=== PATIENT | male | born 1945 | race Caucasian/White ===

== ENCOUNTER → 2017-08-31 | Outpatient (CLI) | payer MEDICARE, OTHER ==
[~2017-08-31] MED LIST: ADULT LOW DOSE81 MG PO; AMBEREN PO; AMBIEN 10 MG TA10 MG PO; ASPIR 8181 MG PO; ATENOLOL 25 MG25 M1 PO; ATIVAN0.5 MG OR; ATIVAN1 MG PO; CALCIUM OYSTER500 MG PO; CARDIZEM CD120 MG PO; CARDIZEM CD180 MG PO; CARDIZEM CD360 MG; CARDIZEM OR; CELEBREX; CEPHALEXIN 500500 M1 PO; CO Q-10200 MG PO; COUMADIN 2.5MG2.5 M1 PO; COUMADIN 5 MG TA5 M1 PO; COZAAR100 MG PO; DETROL LA4 MG PO; DILTIAZEM 24HR420 MG PO; DOCUSATE SODIU100 MG PO; FERROUS GLUCON300 MG PO; FISH OIL 1,001000 M1 PO; FISH OIL 1,001000 M2 PO; HUMALOG100 UNIT/1 SC; HUMALOG100 UNIT/1 SUBQ; HYDROCODON-ACE1 EACH PO; IBUPROFEN 800800 M1 PO; IRON325 PO; JANTOVEN5 MG PO; K-DUR 20 MEQ T20 MEQ OR; LANTUS SC; LANTUS100 UNIT/M SUBQ; LASIX 40 MG TAB40 MG OR; LIPITOR20 MG OR; LIPITOR40 MG PO; LISINOPRIL20 MG OR; LISINOPRIL40 MG PO; MAGNESIUM GLUC500 MG PO; MATZIM LA420 MG PO; MULTAQ400 MG; NEURONTIN 300300 M1 PO; NYSTATIN1 EA10 MC; OXYCODONE HCL 55 MG PO; PACERONE 200 M200 M1 PO; PERCOCET 7.5-31 EACH PO; PHENERGAN 25 MG25 M1 PO; PLAVIX 75 MG TA75 MG PO; TOPROL XL100 MG PO; TOVIAZ4 M1; TOVIAZ4 MG OR; TOVIAZ4 MG PO; TOVIAZ8 MG PO; TRAMADOL 50 MG50 MG PO; TRILIPIX135 MG; TRILIPIX135 MG PO; VESICARE 5 MG TA5 MG PO; VITAMIN E1000 UNI3 PO; XANAX 0.25 MG0.25 MG PO
== END ==
LOC: M.WC 08-26 10:00
DX: I87.2 Venous insufficiency (chronic) (peripheral) (principal); E11.622 Type 2 diabetes mellitus with other skin ulcer; L97.811 Non-pressure chronic ulcer of other part of right lower leg limited to breakdown of skin; I10 Essential (primary) hypertension; E78.5 Hyperlipidemia, unspecified; Z86.73 Personal history of transient ischemic attack (TIA), and cerebral infarction without residual deficits; Z89.612 Acquired absence of left leg above knee; Z95.1 Presence of aortocoronary bypass graft

== ENCOUNTER → 2017-09-03 | Outpatient (CLI) | payer MEDICARE, OTHER | LOC: M.WC 01:51 | DX: E11.622 Type 2 diabetes mellitus with other skin ulcer (principal); L97.811 Non-pressure chronic ulcer of other part of right lower leg limited to breakdown of skin; I87.2 Venous insufficiency (chronic) (peripheral); I10 Essential (primary) hypertension; E78.5 Hyperlipidemia, unspecified; Z96.653 Presence of artificial knee joint, bilateral; Z86.73 Personal history of transient ischemic attack (TIA), and cerebral infarction without residual deficits; Z95.1 Presence of aortocoronary bypass graft ==

== ENCOUNTER → 2017-09-07 | Outpatient (CLI) | payer MEDICARE, OTHER | LOC: M.WC 01:44 | DX: E11.622 Type 2 diabetes mellitus with other skin ulcer (principal); L97.811 Non-pressure chronic ulcer of other part of right lower leg limited to breakdown of skin; I87.2 Venous insufficiency (chronic) (peripheral); I10 Essential (primary) hypertension; E78.5 Hyperlipidemia, unspecified; Z96.653 Presence of artificial knee joint, bilateral; Z96.612 Presence of left artificial shoulder joint; Z95.1 Presence of aortocoronary bypass graft; Z79.01 Long term (current) use of anticoagulants; Z79.4 Long term (current) use of insulin; Z86.73 Personal history of transient ischemic attack (TIA), and cerebral infarction without residual deficits; Z89.612 Acquired absence of left leg above knee; Z79.82 Long term (current) use of aspirin ==

== ENCOUNTER → 2017-09-21 | Outpatient (CLI) | payer MEDICARE, OTHER | LOC: M.WC 09-14 05:25 | DX: S81.001A Unspecified open wound, right knee, initial encounter (principal); E11.622 Type 2 diabetes mellitus with other skin ulcer; I87.2 Venous insufficiency (chronic) (peripheral); L97.811 Non-pressure chronic ulcer of other part of right lower leg limited to breakdown of skin; E78.5 Hyperlipidemia, unspecified; I10 Essential (primary) hypertension; Z86.73 Personal history of transient ischemic attack (TIA), and cerebral infarction without residual deficits; Z89.612 Acquired absence of left leg above knee; Z95.1 Presence of aortocoronary bypass graft; X58.XXXA Exposure to other specified factors, initial encounter; Y93.89 Activity, other specified; Y92.89 Other specified places as the place of occurrence of the external cause; Y99.8 Other external cause status ==

== ENCOUNTER → 2017-10-05 | Outpatient (CLI) | payer MEDICARE, OTHER | LOC: M.WC 09-28 03:34 | DX: E11.622 Type 2 diabetes mellitus with other skin ulcer (principal); L97.811 Non-pressure chronic ulcer of other part of right lower leg limited to breakdown of skin; I87.2 Venous insufficiency (chronic) (peripheral); I10 Essential (primary) hypertension; E78.5 Hyperlipidemia, unspecified; Z96.653 Presence of artificial knee joint, bilateral; Z96.612 Presence of left artificial shoulder joint; Z86.73 Personal history of transient ischemic attack (TIA), and cerebral infarction without residual deficits; Z95.1 Presence of aortocoronary bypass graft; Z89.612 Acquired absence of left leg above knee ==

== ENCOUNTER → 2017-10-12 | Outpatient (CLI) | payer MEDICARE, OTHER | LOC: M.WC 02:26 | DX: E11.622 Type 2 diabetes mellitus with other skin ulcer (principal); L97.811 Non-pressure chronic ulcer of other part of right lower leg limited to breakdown of skin; I87.2 Venous insufficiency (chronic) (peripheral); I10 Essential (primary) hypertension; E78.5 Hyperlipidemia, unspecified; Z86.73 Personal history of transient ischemic attack (TIA), and cerebral infarction without residual deficits; Z95.1 Presence of aortocoronary bypass graft; Z96.653 Presence of artificial knee joint, bilateral; Z96.612 Presence of left artificial shoulder joint ==

== ENCOUNTER → 2017-10-19 | Outpatient (CLI) | payer MEDICARE, OTHER | LOC: M.WC 02:54 | DX: E11.622 Type 2 diabetes mellitus with other skin ulcer (principal); I87.2 Venous insufficiency (chronic) (peripheral); L97.811 Non-pressure chronic ulcer of other part of right lower leg limited to breakdown of skin; E78.5 Hyperlipidemia, unspecified; I10 Essential (primary) hypertension; Z86.73 Personal history of transient ischemic attack (TIA), and cerebral infarction without residual deficits; Z89.612 Acquired absence of left leg above knee; Z95.1 Presence of aortocoronary bypass graft ==

== ENCOUNTER → 2017-10-26 | Outpatient (CLI) | payer MEDICARE, OTHER | LOC: M.WC 00:31 | DX: E11.622 Type 2 diabetes mellitus with other skin ulcer (principal); I87.2 Venous insufficiency (chronic) (peripheral); L97.811 Non-pressure chronic ulcer of other part of right lower leg limited to breakdown of skin; E78.5 Hyperlipidemia, unspecified; I10 Essential (primary) hypertension; Z86.73 Personal history of transient ischemic attack (TIA), and cerebral infarction without residual deficits; Z89.612 Acquired absence of left leg above knee; Z95.1 Presence of aortocoronary bypass graft ==

== ENCOUNTER 2017-11-25 12:32 | Inpatient (IN) | payer MEDICARE, OTHER ==
[~2017-11-25] VITALS: Ht 177.8 cm; Wt 110.3 kg
[~2017-11-25 12:32] MED LIST changes: -ASPIR 8181 MG PO; -CARDIZEM CD120 MG PO; -CARDIZEM CD180 MG PO; -COUMADIN 2.5MG2.5 M1 PO; -COUMADIN 5 MG TA5 M1 PO; -DETROL LA4 MG PO; -FISH OIL 1,001000 M2 PO; -HUMALOG100 UNIT/1 SUBQ; -IRON325 PO; -LANTUS100 UNIT/M SUBQ; -TOPROL XL100 MG PO; -TOVIAZ8 MG PO
[2017-11-25] MEDS ORDERED: ASPIR 8181 MG PO (17:04)
[2017-11-25] MEDS ORDERED: TOPROL XL100 MG PO ×2 (17:06→18:27)
[2017-11-25] MEDS ORDERED: DETROL LA4 MG PO (17:06)
[2017-11-25] MEDS ORDERED: CARDIZEM CD120 MG PO (18:18)
[2017-11-25] MEDS ORDERED: CARDIZEM CD180 MG PO (18:19)
[2017-11-25] MEDS ORDERED: IRON325 PO (18:20)
[2017-11-25] MEDS ORDERED: HUMALOG100 UNIT/1 SUBQ (18:22)
[2017-11-25] MEDS ORDERED: LANTUS100 UNIT/M SUBQ (18:24)
[2017-11-25] MEDS ORDERED: TOVIAZ8 MG PO (18:29)
[2017-11-25] MEDS ORDERED: TRILIPIX135 MG PO (18:30)
[2017-11-25] MEDS ORDERED: COUMADIN 5 MG TA5 M1 PO (18:33)
[2017-11-25] MEDS ORDERED: COUMADIN 2.5MG2.5 M1 PO (18:35)
[2017-11-25 18:51] VITALS: BP 162/80
--- NOTE | 2017-11-25 18:55 | NUR ---
PATIENT ADMITTED TO UNIT FROM [facility] AT 1745, ORIENTED TO ROOM AND CALL LIGHT, EMAR UPDATED. PATIENT EATING DINNER AT THIS TIME, NO COMPLAINTS OF PAIN/DISCOMFORT. COMMERCIAL SALES REPRESENTATIVE WILL FINISH ADMISSION/ASSESSMENT
[2017-11-25 20:18] VITALS: BP 131/72
[2017-11-25 20:23] VITALS: BP 126/75
--- NOTE | 2017-11-25 23:54 | NUR ---
ASSUMED CARES AT 1920. PT ALERT AND ORIENTED X 4. PLEASANT. SLIGHT SLURRED SPEECH FROM OLD CVA BUT CAN MAKE NEEDS KNOWN. S/P PACEMAKER PLACEMENT. DRESSING TO RIGHT CHEST IS INTACT. 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 HAS ISAEL WRAP TO RIGHT ANKLE DUE TO PAIN. REFUSED ANY PAIN MEDS. TAKES PILLS WHOLE WITHOUT ISSUES. ACCUCHECK AT HS WAS 141. HAS LANTUS 30 UNITS ORDERED BUT PT STATES THAT TAKES 10 UNITS AT HOME. THIS RN REVIEWED RECORDS AND DID NOT FIND THAT LANTUS WAS GIVEN AT PREVIOUS HOSPITAL. PT REQUESTED ONLY 10 UNITS AND SO THIS WAS GIVEN. TOOK HS SNACK. PT ORIENTED TO UNIT AND QUESTIONS ANSWERED. REVIEWED ALL MEDS. TO BRING TOVIAZ AND TRILIPIX FROM HOME. CALL LIGHT IN REACH. WILL CONTINUE TO MONITOR.
[2017-11-26 04:30] LABS: HEMATOCRIT 42.7 % (42.0-52.0); HEMOGLOBIN 14.3 gm/dL (14.0-18.0); MCH 29.1 pg (26.0-34.0); MCHC 33.4 g/dL (28.0-37.0); MCV 87.1 fL (80.0-100.0); MPV 8.8 fl. (7.2-11.1); RBC 4.91 mil/uL (4.50-6.00); RDW-CV 16.1 % (10.5-14.5)
[2017-11-26 04:38] LABS: INR 1.3; PROTIME 12.6 Seconds (9.20-11.50)
[2017-11-26 04:45] LABS: CALCIUM 9.8 mg/dL (8.5-10.1); CREATININE 1.3 mg/dL (0.6-1.3); POTASSIUM 4.2 mmol/L (3.5-5.1)
--- NOTE | 2017-11-26 05:20 | NUR ---
PT IS A MIN ASSIST WITH GAIT BELT AND WALKER. USED URINAL AND STAFF EMPTIED. SLEPT OFF AND ON. USED CALL LIGHT APPROPRIATELY.
[2017-11-26 08:00] VITALS: BP 122/77
--- NOTE | 2017-11-26 11:29 | NUR ---
Nutrition: consult received. Admitted to Rehab s/p pacemaker placement. H/o old BKA and prosthetis, DM. Wt: 234#. BG 102, no albumin recorded. Heart healthy diet with a CHO count is ordered. Pt just admitted last night. Not a lot of info yet. Appears at low nutrition risk at this time. Will follow weekly.
--- NOTE | 2017-11-26 16:37 | NUR ---
ASSUMMED CARE OF PT AT 0730, PT ALERT AND ORIENTED, PT TRANSFERS WITH MIN ASSIST GB WALKER, NEEDS CUEING HE DOES MOVES THAT ARE NOT SAFE AT TIMES, DRESSING TO CHEST C/D/I. PT TAKING FOOD AND FLUIDS WELL, MOVES WELL IN BED, TO DININGROOM FOR LUNCH, PARTICIPATED IN ALL THERAPIES, PRECAUTIONS MAINTAINED, PT STATES HIS PAIN IS AN "8" BUT REFUSES TO TAKE ANY MEDICATION, STATES HE ALWAYS HAS PAIN AND IS USED TO IT. NOTED PT HAS NO PAIN MEDS ORDERED IF NEEDED, WILL OBTAIN ORDER FROM PHYSICIAN, PT STATES HE IS JUST ON SLIDING SCALE INSULIN AT HOME, ORDER OBTAINED TO CHANGE TO SLIDING SCALE, HOURLY ROUNDING COMPLETED, ASSESSMENT COMPLETE, WILL CONTINUE TO MONITOR.
--- NOTE | 2017-11-26 16:51 | NUR ---
SW met with pt to complete initial assessment, introduce self, and SW role. Pt lives in a ranch style home with his and a son who is autistic and goes to [facility] (pt son takes a transport service there and back home). Pt home has a basement but he does not go downstairs. Pt has another son who lives in [place], [place] and a dtr who lives in [place] and is getting ready to have her third child. Pt can be available to assist pt all of the time is a good support system. Pt is DPOA and the second son is alternate agent. Pt prior level of functioning was independent. Pt has a cane, walker, wheelchair, ramp, bsc/toilet riser, walk in shower with chair, grab bars, and a lift chair. Past home health PT, pt did not state name of agency, pt felt that HH was not effective and would rather OP if possible. Pt PCP Dr. Caraballo and he last saw her a couple of months ago. SW reviewed consent/pt rights/confidentiality form and discussed team conference on Wednesdays. SW to continue to follow to assist with safe dc planning.
[2017-11-26 20:22] VITALS: BP 141/85
--- NOTE | 2017-11-27 01:57 | NUR ---
ASSUMED CARE 2 1952-11/26-WEDNESDAY.AWAKE IN BED W/ HOB UP.WANTS SIDERAILS X2 UP. & SON VISITING @ THIS TIME.WEARING LEFT LE PROSTHESES.URINAL W/IN REACH.BED ALARM PUT ON @ 1954.WANTS ONLY 10 UNITS LANTUS INSULIN INSTEAD OF 30 UNITS ORDERED.CLAIMS TAKES ONLY 10 UNITS LANTUS INSULIN @ HOME @ . WILL WRITE NOTE TO HIMS TURNS SELF @ NIGHT.ON HOURLY ROUNDS.HEAD GREENSKEEPER DOING ODD HOUR ROUNDS.
[2017-11-27 04:32] LABS: INR 1.8; PROTIME 17.1 Seconds (9.20-11.50)
--- NOTE | 2017-11-27 05:18 | NUR ---
SLEPT LATE & FOUND SLEEPING @ 0200.VOIDS PER URINAL X1 & SITS EDGE OF BED TO VOID.TOOK ALL TURKEY SANDWICH,PEACHES,POTATO CHIPS,MADDIE CRACKERS & 2 APPLE JUICE HS SNACKS.
[2017-11-27 07:38] VITALS: BP 120/71
--- NOTE | 2017-11-27 18:23 | NUR ---
ASSUMED CARE AT 0730 PATIENT ALERT/ORIENTED, PAIN TO RIGHT SHOULDER UPPER CHEST WHERE PACEMAKER WAS PLACED. PATIENT STATES HE DOES NOT KNOW WHY TRAMADOL WAS LISTED AN ALERGY, TRAMADOL REMOVED FROM HIS ALERGY LIST AND ONE DOSE GIVEN AT 1500 WITH NO REACTIONS NOTED, AND RELIEF OBTAINED. PARTICIPATED IN ALL THERAPIES TO DINING ROOM FOR MEALS. BED/CHAIR ALARMS IN PLACE, CALL LIGHT IN REACH.
[2017-11-27 20:20] VITALS: BP 127/70
--- NOTE | 2017-11-28 00:45 | NUR ---
ASSUMED CARE @ 1949-11/27-SAT.SITS IN RECLINER WATCHING TV.SON VISITING. WEARING LEFT LE PROSTHESES.FOUND IN BED @ 2049.TRANSFERED SELF TO BED. INSTRUCTED TO CALLL FOR SBA ONLY DURING TRANSFERS.WANTS ONLY SIDERAILS X2 UP. BED ALARM PUT ON @ 2049.URINAL W/IN REACH.SEE PAIN MANAGEMENT @ 2116.ON HOURLY ROUNDS.SHERIFF DEPUTY DOING ODD HOUR ROUNDS.TURNS SELF @ NIGHT.
[2017-11-28 04:07] LABS: INR 2.1; PROTIME 20.4 Seconds (9.20-11.50)
--- NOTE | 2017-11-28 05:34 | NUR ---
SLEEPING SINCE 0.USED URINAL X3.NURSE EMPTIES URINAL @ NIGHT.TOOK ALL RED JELLO & ORANGE SHERBET HS SNACKS.
[2017-11-28 07:28] VITALS: BP 165/86
--- NOTE | 2017-11-28 18:35 | NUR ---
ASSUMED CARE AT 0730 PATIENT ALERT/ORIENTED, PAIN MEDS GIVEN X1 THIS AM WITH GOOD RELIEF. PATIENT UP WITH STANDBY ASSIST WITH TRANSFERS TO W/C. BED/CHAIR ALARMS IN PLACE, CALL LIGHT IN REACH. TO DINING ROOM FOR MEALS, FAMILY VISITING THIS SHIFT.
[2017-11-28 20:28] VITALS: BP 127/78
--- NOTE | 2017-11-29 00:31 | NUR ---
ASSUMED CARE @ 1919-.AWAKE IN BED WATCHING TV.LEFT LE PROSTHESIS IN PLACE.WANTS ONLY SIDERAILS X2 UP,ALL LIGHTS OFF & DOOR HALF CLOSED @ NIGHT. URINAL W/IN REACH.SITS EDGE OF BED TO USE URINAL.SEE PAIN MANAGEMENT @ 2040. ON HOURLY ROUNDS.DEAN OF STUDENTS DOING ODD HOUR ROUNDS.SLEEPING @ 2200 & 0035-11/29-WEDNESDAY. TURNS SELF @ NIGHT.
--- NOTE | 2017-11-29 05:22 | NUR ---
SLEEPING SINCE 2200,@ 0035 & @ 0400.AWAKE @ INTERVALS DURING NIGHT.USED URINAL X 5.TOOK ORANGE SHERBETS X2 HS SNACKS.URINE ACCIDENT X1.
[2017-11-29 08:00] VITALS: BP 128/77
--- NOTE | 2017-11-29 14:29 | NUR ---
Pt nurse discussed with SW that pt was at the hospital earlier asking about pt receiving a scooter and that pt will be back to hospital tomorrow to discuss with SW. SW to follow with team to determine if a scooter is recommended and if pt would qualify...scooters are not covered by insurance, motorized/electric wheelchairs can be covered by insurance, but again, pt would have to meet qualifcations and paperwork completed, possibly takes months to finalize receival of electric wheelchair. Pt nurse aware and pt nurse discussed with pt that SW and pt and pt will discuss in further detail tomorrow. SW to continue to follow to assist with safe dc planning and to discuss with pt if there are any questions or comments for SW to present to team on Wednesday during team conference.
--- NOTE | 2017-11-29 16:16 | NUR ---
ASSUMMED CARE OF PT AT 729, PT ALERT AND ORIENTED, TRANSFERS WITH SBA, GB WALKER, TAKING FOOD AND FLUIDS WELL, PROSTHETIC LEG ON LEFT, DRESSING C/D/I TO RIGHT CHEST, VOIDS PER URINAL, PHYSICIANS OFFICE CALLED AND CONFIRMED THAT PT DID NOT NEED TO BE SEEN AT HIS APPT WEDNESDAY, THAT NURSING SHOULD REMOVE DRESSING WEDNESDAY AND CAN STAY OPEN TO AIR AND COVERED WHEN IN SHOWER. PT TAKING FOOD AND FLUIDS WELL, PARTICIPATED IN ALL THERAPIES, HOURLY ROUNDING COMPLETE, ASSESSMENT COMPLETE, REPOSITIONED EVERY 2 HOURS, WAFFLE CUSHION IN PLACE, WILL CONTINUE TO MONITOR.
[2017-11-29 19:59] VITALS: BP 140/68
--- NOTE | 2017-11-30 05:03 | NUR ---
ASSUMED CARES AT 1920. PT ALERT AND ORIENTED. PLEASANT. SPEECH SLURRED FROM OLD CVA BUT CAN MAKE NEEDS KNOWN. S/P PACEMAKER PLACEMENT. WEARS PROSTHESIS TO LEFT BKA. C/O PAIN TO RIGHT SHOULDER AND RIGHT UPPER CHEST. TRAMADOL GIVEN. TAKES PILLS WITHOUT ISSUES. HE IS A MIN ASSIST WITH GAIT BELT AND WALKER. USED URINAL AND STAFF EMPTIES. SLEPT OFF AND ON. USED CALL LIGHT APPROPRIATELY.
[2017-11-30 08:00] VITALS: BP 111/69
--- NOTE | 2017-11-30 15:28 | NUR ---
ASSUMMED CARE OF PT AT 0730, PT ALERT AND ORIENTED, PT TRANSFERS WITH SBA, GB WITH A STAND PIVOT, HAS PROSTHETIC LEG, PT DENIES NEED FOR PAIN MEDICATION AT THIS TIME, PT COMPLAINED OF NAUSEA WITH VOMITING THIS AM WHEN IN SHOWER, PHYSICIAN CALLED AND ORDER OBTAINED FOR ZOFRAN, GIVEN WITH GOOD RELIEF,PT HAD LARGE BM ON TOILET, VOIDS PER URINAL, PT PARTICIPATED IN ALL THERAPIES, HOURLY ROUNDING COMPLETED, ASSESSMENT COMPLETE, WILL CONTINUE TO MONITOR.
--- NOTE | 2017-11-30 17:00 | NUR ---
SW met with pt but pt had just left prior to SW being able to meet with pt. Pt said that he and his actually don't have any paperwork yet but still want to look into process of receiving a motorized wheelchair. SW explained again to pt that team can assess for need and begin paperwork if pt is eligible and meets criteria for the electric wheelchair. Pt understanding and appreciative of possibly trying to look into the process. SW suggested PCP as well at follow up after the hospital if pt not able to receive one during rehab stay and pt said that he just hadn't been able to discuss with his PCP. SW to continue to follow.
[2017-11-30 21:06] VITALS: BP 119/65
[2017-12-01 04:21] LABS: HEMATOCRIT 42.2 % (42.0-52.0); HEMOGLOBIN 14.2 gm/dL (14.0-18.0); MCHC 33.5 g/dL (28.0-37.0); MCV 86.6 fL (80.0-100.0); MPV 8.7 fl. (7.2-11.1); RBC 4.88 mil/uL (4.50-6.00); RDW-CV 16.4 % (10.5-14.5); WBC 6.8 thou/uL (4.0-11.0)
[2017-12-01 04:51] LABS: ANION GAP 8 mmol/L (7-16); BUN 17 mg/dL (7-18); CALCIUM 9.2 mg/dL (8.5-10.1); CHLORIDE 104 mmol/L (98-107); CHOLESTEROL 122 mg/dL (<200); CO2 28 mmol/L (21-32); CREATININE 1.3 mg/dL (0.6-1.3); GLUCOSE 85 mg/dL (70-99); HDL CHOLESTEROL 17 mg/dL (>40); INR 2.3; LDL CHOLESTEROL 56 mg/dL (<100); POTASSIUM 4.2 mmol/L (3.5-5.1); PROTIME 22.1 Seconds (9.20-11.50); SODIUM 140 mmol/L (136-145); TC:HDL 7.2 Ratio (Not establshd); TRIGLYCERIDE 245 mg/dL (<150); VLDL 49 mg/dL (<40)
[2017-12-01 04:53] LABS: SERUM ASSESSMENT Clear
--- NOTE | 2017-12-01 05:00 | NUR ---
ASSUMED CARES AT 1920. PT ALERT AND ORIENTED. PLEASANT. S/P PACEMAKER PLACEMENT. RIGHT CHEST INCISION IS HEALING AND DRIVE IN TELLER. DENIES ANY FURTHER NAUSEA/VOMITING. TRAMADOL GIVEN FOR RIGHT SHOULDER PAIN. TAKES PILLS WHOLE WITHOUT ISSUES. HE IS A MIN ASSIST WITH GAIT BELT AND WALKER. LEFT LEG PROSTHESIS WITH OLD BKA. USES URINAL AND STAFF EMPTIES. HS SNACK GIVEN. SLEPT WELL MOST OF THE NIGHT. ALL NEEDS MET. CALL LIGHT IN REACH.
[2017-12-01 08:11] VITALS: BP 111/55
[2017-12-01 08:15] VITALS: BP 111/55
--- NOTE | 2017-12-01 16:07 | NUR ---
TEAM [employer] MEETING HELD TODAY. CM SPOKE TO THE PATIENT TO INFORM OF THE MEETING AND PLAN TO RETEAM WITH POSSIBLE D/C HOME NEXT WEEK. PATIENT IN AGREEMENT. CM ATTEMPTED TO CONTACT PATIENT'S CRISTAL AND LEFT A VOICEMAIL TO RETURN CALL WITH ANY QUESTIONS OR CONCERNS. PATIENT PROGRESSING TOWARDS GOALS, BUT BARRIERS ARE BACK PAIN, NUMBNESS, ACTIVITY TOLERANCE, AND ENDURANCE. CM WILL REMAIN AVAILABLE TO ASSIST AND FOLLOW NEEDED.
--- NOTE | 2017-12-01 18:58 | NUR ---
ASSUMED CARE AT 0730 PATIENT ALERT/ORIENTED, PAIN MED GIVEN X 1 WITH GOOD RELIEF, BED/CHAIR ALARMS IN PLACE, REFUSED TO EAT LUNCH AND DID NOT WANT TO GO TO DINING ROOM FOR DINNER. CALLED SUNITHA KNOTTER TO EDUCATE PATIENT ON HIS DIET/CARBS ALLOWED ETC. CALL LIGHT IN REACH, PARTICIPATED IN ALL THERAPIES TODAY.
[2017-12-01 19:59] VITALS: BP 135/79
--- NOTE | 2017-12-02 01:31 | NUR ---
ASSUMED CARE @ 1924-.SITS IN RECLINER W/ LEFT LE PROSTHESES ON VISITING W/ SON.CHAIR ALARM PUT ON @ 1924.WANTS ONLY SIDERAILS X2 UP.URINAL W/IN REACH.BRP PER W/C @ 2109.PATIENT FOUND IN BED @ 2129.TRANSFERED SELF FROM TOILET TO W/C TO BED.INSTRUCTED TO CALL FOR ASSIST DURING TRANSFERS.SITS EDGE OF BED TO USE URINAL.ON HOURLY ROUNDS.MANAGER ETL DOING ODD HOUR ROUNDS.
--- NOTE | 2017-12-02 05:21 | NUR ---
SLEEPING SINCE 2199.BRP PER W/C X1.USED URINAL X2.TOOK ALL TURKEY SANDWICH, PEACHES,MADDIE CRACKERS,POTATO CHIP & APPLE JUCE X2 HS SNACKS.SEE POSITION CHANGE CHARTING.
[2017-12-02 07:43] VITALS: BP 123/63
[2017-12-02 19:58] VITALS: BP 135/89
--- NOTE | 2017-12-03 00:41 | NUR ---
ASSUMED CARE @ 1919-.AWAKE IN BED W/ HOB UP.URINAL W/IN REACH.WANTS SIDERAILS X2 UP.NOT WEARING LEFT LE PROSTHESES @ THIS TIME.MEPILEX DRSG LEFT FOREARM IN PLACE.SLEEPING ALREADY @ 2039 BUT AWAKENED FOR HS MEDS.ON HOURLY ROUNDS.MAMMALOGIST DOING ODD HOUR ROUNDS.SEE POSITION CHANGE CHARTING.
--- NOTE | 2017-12-03 05:29 | NUR ---
SLEEPING SINCE 2039.USED URINAL X3.SITS EDGE OF BED TO USE URINAL.TOOK ONE ORANGE SHERBET HS SNACK.
[2017-12-03 08:07] VITALS: BP 108/75
--- NOTE | 2017-12-03 10:22 | NUR ---
SW met with pt and provided list of resources/referrals for power wheelchairs. Pt said that his son bought pt a scooter. Pt was grateful for the resource list though of [employer], [employer], and [employer] for future possible power wheelchair needs. SW to continue to follow to assist with safe dc planning.
--- NOTE | 2017-12-03 15:35 | NUR ---
PT GONE AT 1430 FOR AN XRAY IN RADIOLOGY.
[2017-12-03 20:00] VITALS: BP 139/74
--- NOTE | 2017-12-03 20:50 | NUR ---
SITTING UP IN CHAIR VISITING WITH YOUNG MALE VISITOR AND WATCHING TV. C/O PAIN IN PACEMAKER AREA RATED "8". PRN TRAMADOL GIVEN. PACEMAKER SITE OPEN TO AIR. TWO SAME RED SPOTS OBSERVED. TOOK MEDS WHOLE WITH WATER.
--- NOTE | 2017-12-04 05:17 | NUR ---
AT 11:15 PT STATED STILL NO RELIEF FROM SORENESS IN PACEMAKER AREA OBTAINED. PATIENT STATES HE TAKES IBUPROFEN AT HOME FOR PAIN. IBUPROFEN IS CONTRAINDICATED BECAUSE OF ITS INTERACTION WITH COUMADIN. WHEN WENT TO INFORM PATIENT HE WAS SLEEPING AND HAS RESTED SINCE THEN. HOURLY ROUNDING IN PROGRESS.
[2017-12-04 07:30] VITALS: BP 121/78
--- NOTE | 2017-12-04 18:47 | NUR ---
AM ASSESSMENT AND VITAL SIGNS COMPLETED DOCUMENTED. PT TRANSFERS WITH A GAIT BELT, WALKER AND LEFT LEG PROSTHESIS. ALL THERAPY SESSIONS COMPLETED. FALL PRECAUTIONS AND HOURLY ROUNDING IN PLACE.
[2017-12-04 20:00] VITALS: BP 154/104
--- NOTE | 2017-12-04 21:20 | NUR ---
SITTING UP ON SIDE OF BED DOING ORAL CARE. VOIDS DARK/YELLOW URINE PER URINAL. SITS ON SIDE OF BED TO VOID. HAD VISITORS EARLIER. TOOK MEDS WHOLE WITH WATER. PAIN MED GIVEN FOR C/O PAIN IN PACEMAKER AREA.
--- NOTE | 2017-12-05 05:38 | NUR ---
RESTED QUIETLY. NO FURTHER C/O PAIN. HOURLY ROUNDING IN PROGRESS.
[2017-12-05 07:52] VITALS: BP 120/72
--- NOTE | 2017-12-05 19:22 | NUR ---
AM ASSESSMENT AND VITAL SIGNS COMPLETED DOCUMENTED. PT HAS BEEN UP IN A WHEELCHAIR MOST OF THE DAY, SELF PROPELS ABOUT HIS ROOM AND TO THE DINING ROOM FOR MEALS. NO ACUTE DISTRESS, HOURLY ROUNDING AND FALL PRECAUTIONS IN PLACE.
[2017-12-05 20:00] VITALS: BP 133/72
--- NOTE | 2017-12-06 01:11 | NUR ---
ASSUMED CARE @ 1924-12/05-SUN.AWAKE IN BED WATCHING TV.URINAL W/.IN REACH. BED ALARM PUT ON @ 1924.LEFT LEG PROSTHESES OFF @ THIS TIME.MEPILEX DRSG CAME OFF LEFT FOREARM.ABRASION CLEANSED W/ NS & NEW MEPILEX APPLIED @ 2114.ON HOURLY ROUNDS.SALT CUTTER DOING ODD HOUR ROUNDS.SEE POSITION CHANGE CHARTING.
--- NOTE | 2017-12-06 05:40 | NUR ---
SLEEPING SINCE -12/06-WEDNESDAY.SLEPT LATE.USED URINAL X6.URINE ACCIDENT X1. TOOK ALL ORANGE SHERBETS X2 HS SNACKS.
[2017-12-06 08:07] VITALS: BP 134/72
--- NOTE | 2017-12-06 15:30 | NUR ---
SW followed up with pt on how pt feels he is making progress in therapies. Pt says he feels "pretty good". Pt did not have any needs or questions at this time. SW to follow to discuss with pt if there are any comments or concerns and to continue to follow to assist with safe dc planning.
--- NOTE | 2017-12-06 16:12 | NUR ---
PT UP TO W/C AND IS I MOBILE ON UNIT. PT TRANSFERRS WITH MIN ASSIST OF 1 AND IS REMINDED TO CALL FOR ASSIST WITH ALL TRANSFERRS. PT DENIES PAIN. PT WEARS PROSTHESIS TO LT LEG. PT EATS MEALS IN DINNINGROOM AND FEEDS SELF.PACEMAKER INCISION WELL HEALED AND CARDIOVASCULAR SONOGRAPHER.PT VOIDS USEING URINAL AND CALLS FOR ASSIST TO TRANSFERR TO TOILET FOR BM. PT IS ALERT AND ORIENTATED AND SLIGHTLY IGIUGIG. PT PROGRESSES TOWARDS GOALS AND HOURLY ROUNDING CONTINUES.
[2017-12-06 20:39] VITALS: BP 135/78
--- NOTE | 2017-12-07 01:39 | NUR ---
ASSUMED CARE @ -WEDNESDAY.AWAKE IN BED W/ HOB UP. & SON VISITING @ THIS TIME.URINAL W/IN REACH.LEFT LE PROSTHESES OFF @ THIS TIME.SITS EDGE OF BED TO USE URINAL.ON HOURLY ROUNDS.METAL FABRICATING SUPERVISOR DOING ODD HOUR ROUNDS.SEE POSITION CHANGE CHARTING.
--- NOTE | 2017-12-07 05:10 | NUR ---
SLEEPING SINCE 2224.AWAKE MOST OF TIME LATER.USED URINAL X6 DURING NIGHT. TOOK ORANGE SHERBETS X2 HS SNACKS.
[2017-12-07 07:00] VITALS: BP 123/71
[2017-12-07 08:26] LABS: INR 2.2; PROTIME 21.6 Seconds (9.20-11.50)
--- NOTE | 2017-12-07 09:25 | NUR ---
SW attempted to follow up with pt Anabel at [phone] and Anabel did not answer so SW left a detailed message requesting call back with any questions or comments and in reference to team conference on Wednesday with pt possible to dc this week. Pt did not express any concerns or questions at this time. SW to continue to follow to assist with safe dc planning.
--- NOTE | 2017-12-07 17:32 | NUR ---
PT UP IN ROOM AND HALLS WITH STEADY GAIT AND SB ASSIST. PT DENIES PAIN. PT GOOD APPETITE AND TOLERATING PO WELL. PT PARTICIPATES IN ALL THERAPIES
--- NOTE | 2017-12-07 19:50 | NUR ---
SITTING UP ON SIDE OF BED. IN GOOD SPIRITS. DENIES DISCOMFORT. CALL LIGHT AND URINAL WITHIN REACH. TAKES MEDS WHOLE WITH WATER. SNACK PROVIDED.
[2017-12-07 20:10] VITALS: BP 128/73
--- NOTE | 2017-12-08 05:15 | NUR ---
RESTED ON/OFF. USED URINAL X 3. SPILLED URINE ONTO THE FLOOR X ONE. HOURLY ROUNDING IN PROGRESS.
[2017-12-08 08:06] VITALS: BP 129/74
--- NOTE | 2017-12-08 12:39 | NUR ---
AM ASSESSMENT AND VITAL SIGNS COMPLETED DOCUMENTED. PT HAS BEEN UP IN THE WHEELCHAIR, COMPLETED AM THERAPY SESSIONS AND THEN TOOK A NAP BEFORE AFTERNOON SESSIONS. BED ALARM AND CHAIR ALARM IN PLACE, HOWEVER, PT DOES TRANSFER HIMSELF AT TIMES WITHOUT SUPERVISION. HOURLY ROUNDING AND FALL PRECAUTIONS IN PLACE, PT ENCOURAGED TO CALL FOR STAFF ASSISTANCE.
--- NOTE | 2017-12-08 14:26 | H ---
[address] [address] HISTORY AND PHYSICAL Name: EVERARDO PRECIADO Room: [facility] IN .R.#: [id number] Admission: 11/25/17 Attend Phys: Cindi Fairchild DO Discharge: Date of : 49 Report #: [id number] THIS REPORT FOR: //name// CC: Cindi Caraballo DATE OF SERVICE: 11/25/2017 HISTORY OF PRESENT ILLNESS: This is a 72-year-old male admitted to inpatient rehabilitation to facilitate safe discharge home, status post pacemaker placement due to sick sinus syndrome on 11/22/2017, he was originally hospitalized on 11/17/2017. He has a history of paroxysmal atrial fibrillation, embolic CVA in 2008, CABG times 4 in 2010, and a below-knee amputation in 1965, presenting on 11/17/2017, with symptoms of lightheadedness, orthopnea and decreased heart rate into the 30s. EKG did reveal ventricular rhythm. He was worked up, slated for a pacemaker and is currently continuing physical and occupational therapy due to alterations in activities of daily living. He was previously modified independent with activities of daily living and is currently minimum assistance of 1-2 depending on therapy, activity, and time of day. He does have some minimal issues with problem solving and memory. No significant changes since the preadmission screening. Estimated length of stay is 7-10 days with discharge disposition to the home setting where he does have a who lives in the home can provide supervision. PAST MEDICAL HISTORY: Atrial fibrillation, BPH, CAD, CABG times 4, diabetes type 2 with a random glucose of 74, GERD, hypertension, osteoarthritis of knees and hips, cerebrovascular accident in 2008, BKA in 1965, urinary retention, visual impairment, tibial plateau fracture, left total hip arthroplasty in 2015, right knee replacement in March 2013, right shoulder surgery in 2011 and 2012. ALLERGIES: ACETAMINOPHEN, TRAMADOL, and ZOLPIDEM. SOCIAL HISTORY: No tobacco, alcohol, or illicit drug use. FAMILY HISTORY: Heart disease. REVIEW OF SYSTEMS: Q16-pnosp review of systems is done and is negative except as mentioned in the HPI, specifically no fever, chest pain, shortness of breath, abdominal pain, or distention. Skin is warm and dry. PHYSICAL EXAMINATION: GENERAL: Alert, oriented, in no apparent distress. VITAL SIGNS: Reviewed and are stable. HEENT: Head atraumatic, normocephalic. Pupils are equal, round, and reactive. ABDOMEN: Soft, nontender, and nondistended. NEUROLOGIC: Cranial nerves 2-12 are grossly intact [place] [address] HISTORY AND PHYSICAL Name: EVERARDO PRECIADO Room: [facility] IN M.R.#: [id number] Admission: 11/25/17 Attend Phys: Cindi Fairchild DO Discharge: Date of : 49 Report #: [id number] deficits, 5/5 strength in bilateral upper and lower extremities. Neurologically intact. SKIN: Warm and dry. EXTREMITIES: Below-knee amputation is apparent. ASSESSMENT: 1. Status post sick sinus syndrome with pacemaker placement and alterations in activities of daily living from previously modified independent level of care. 2. Currently minimum assistance of 1-2. 3. Multiple medical comorbidities including atrial fibrillation, coronary artery disease, history of cardiac disease, diabetes, hypertension, and history of cerebrovascular accident as well as a below-knee amputation. PLAN: 1. Admission to inpatient rehabilitation to facilitate safe discharge home. 2. PT, OT, case management, nursing and HIMS to make evaluations and recommendations. 3. Heart healthy, carb-controlled diet. 4. CBC, BMP, INR and protime in the a.m. 5. Up with assistance and fall precautions. 6. Medications were reviewed and reconciled by myself and are available in the MAR. 7. Plan of care is pending. We will team him weekly and make changes to plan of care as needed. <ELECTRONICALLY SIGNED> By: Cindi Fairchild DO 12/08/17 1426 [id number] Fairchild DO /nt
--- NOTE | 2017-12-08 14:26 | PLAN ---
[address] [address] REHAB UNIT PLAN OF CARE Name: EVERARDO PRECIADO Room: [address] IN .R.#: [id number] Admission: 11/25/17 Attend Phys: Cindi Fairchild DO Discharge: Date of : 47 Report #: [id number] THIS REPORT FOR: //name// CC: Cindi Caraballo OVERALL PLAN OF CARE This is a 72-year-old male admitted to inpatient rehabilitation to facilitate safe discharge home, status post sick sinus syndrome with pacemaker placement. Initial hospitalization on 11/17/2017 with surgical date on 11/22/2017. He was previously modified independent with activities of daily living and is currently minimum assistance of 1-2 depending on therapy, activity and time of day with some assistance needed in problem solving and memory as well. Medical prognosis is good. Rehabilitation prognosis is good. Estimated length of stay is 7-10 days with discharge disposition to the home setting where he lives in a home. He has a who can provide supervision. Physical Therapy will see the patient 60-90 minutes per day, 5 days per week, working on upper and lower body strength, balance, coordination, navigation. Occupational Therapy will work with the patient 60-90 minutes per day, 5 days per week, working on upper and lower body strength, balance, coordination, navigation, bathing, dressing, and toileting. Speech and language pathology will work with the patient 30-90 minutes per day, 5 days per week, working on memory, cognition, problem solving, expression 5 days per week. This is an overall plan of care, it may change from time to time, we will team weekly and make changes to plan of care as needed. <ELECTRONICALLY SIGNED> By: Cindi Fairchild DO 12/08/17 1426 [id number] Fairchild DO /nt
--- NOTE | 2017-12-08 14:57 | NUR ---
Following for d/c planning needs. Reviewed chart and updated pt and spouse on Team Meeting discussion. Plan is for pt to d/c home on Wednesday with outpatient PT. Will remain available to assist as needed.
[2017-12-08 19:30] VITALS: BP 112/51
--- NOTE | 2017-12-09 05:05 | NUR ---
ASSUMED PT CARE AT 1930. PT ALERT AND ORIENTED X4, POLITE AND COOPERATIVE WITH CARES. PT SITTING UP ON SIDE OF BED, LEFT LE PROSTHESIS ON AT THIS TIME. PT DENIES PAIN. PACEMAKER SITE TO RIGHT CHEST IS HEALED. USES URINAL, STAFF EMPTIES. CALL LIGHT AND FREQUENTLY USED ITEMS WITHIN REACH. HOURLY ROUNDING IN PROGRESS, WILL CONTINUE TO MONITOR.
[2017-12-09 08:29] VITALS: BP 130/73
--- NOTE | 2017-12-09 18:40 | NUR ---
ASSUMED CARE AT 0730 PATIENT ALERT/ORIENTED, NO COMPLAINTS OF PAIN THIS SHIFT, UP WITH ASSIST OF ONE AND WALKER/GAIT BELT. BED/CHAIR ALARMS IN PLACE, HOURLY ROUNDING COMPLETED, CALL LIGHT IN REACH. PARTICIPATED IN ALL THERAPIES TODAY, TO DINING ROOM FOR MEALS. TO BE DISCHARGED TOMORROW
[2017-12-09 20:00] VITALS: BP 113/67
--- NOTE | 2017-12-10 05:00 | NUR ---
ASSUMED PT CARE AT 1930. PT ALERT AND ORIENTED X4, POLITE AND COOPERATIVE WITH CARES. DENIES PAIN. PACEMAKER SITE TO RIGHT CHEST HEALED. USES URINAL OVERNIGHT, STAFF EMPTIED. PT TO BE DISCHARGED TODAY. CALL LIGHT AND FREQUENTLY USED ITEMS WITHIN REACH. HOURLY ROUNDING IN PROGRESS, WILL CONTINUE TO MONITOR.
[2017-12-10 07:00] VITALS: BP 135/87
[2017-12-10] MEDS ORDERED: FISH OIL 1,001000 M2 PO (10:06)
[2017-12-10 10:24] VITALS: BP 130/56
[2017-12-10 10:32] VITALS: BP 130/56
[2017-12-10 10:52] VITALS: BP 130/56
--- NOTE | 2017-12-10 10:54 | NUR ---
AMBER spoke with pt about dc planning for today. Pt preference for [facility] OP therapy services. AMBER called and left message for Yeimy at [phone] about referral and SW faxed referral and order to fax attn Yeimy [phone]. Pt to dc home with family today Sunday 12/10. OP therapy services to follow. No other dc needs expressed.
--- NOTE | 2017-12-10 11:07 | NUR ---
ASSUMED CARE AT 0730. ALERT ORIENTED PLEASANT COOPERATIVE. HX OF PACEMAKER PLACEMENT. INCISION RT. 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 TRANSFERS WITH SBA G BELT WALKER. USES CALL LIGHT APPROPRIATELY FOR ASSISTANCE BED AND CHAIR ALARMS FOR PT. SAFETY. DENIES NEED FOR PAIN MEDS OR REQUESTS. WEARS PROSTHETIC OLD L BKA. PARTICIPATING IN THERAPIES THIS A.M. FEEDS SELF AND TAKES MEDS WITHOUT DIFFICULTY.
[2017-12-10 12:53] VITALS: BP 130/56
--- NOTE | 2017-12-10 13:43 | NUR ---
DISMISSED TO HOME AT 1253 WITH BELONGINGS D/C INSTRUCTIONS WERE GIVEN VERBALIZED UNDERSTANDING ALLOWED TIME FOR QUESTIONS. HOME MEDS GIVEN TO PT. ALSO. SON HERE TO TRANSPORT PT. HOME.
--- NOTE | 2018-01-04 15:21 | D ---
[address] [address] DISCHARGE SUMMARY Name: EVERARDO PRECIADO Room: [address] M.R.#: [id number] Admission: 11/25/17 Attend Phys: Cindi Fairchild DO Discharge: 12/10/17 Date of : 49 Report #: [id number] THIS REPORT FOR: //name// CC: Cindi Caraballo DATE OF SERVICE: 12/10/2017 DISCHARGE DIAGNOSES: Sick sinus syndrome, status post pacemaker placement with a previous history of left below knee amputation and alterations in activities of daily living and mobility. DISCHARGE DISPOSITION: To home with supportive family. HOSPITAL COURSE: The patient did well during his rehab stay. He did progress as anticipated with ambulation and his activities of daily living. He is utilizing a front-wheeled walker for ambulation. His prosthetic is well-fitting. He does have chronic low back pain and had an exacerbation of this during this stay. Recommendations were given to follow up with pain management. He is opting to do that with his normal pain group who has provided epidural steroid injections in the past. He will follow with primary care physician within 1 week, his automatic seamer within 1-2 weeks and Neurology as needed and prosthetics as needed. Outpatient prescription was given for PT, OT and speech and language pathology. Notifications for physician were given. He is to maintain a carb-controlled cardiac diet and maintain fall precautions, utilizing a front-wheeled walker for safety. He also apparently now has a scooter. He does have a ramp accessible house. DISCHARGE PHYSICAL EXAMINATION: GENERAL: Alert, oriented, in no apparent distress. VITAL SIGNS: Reviewed and are stable. HEENT: Head atraumatic, normocephalic. Pupils equal, round, reactive. ABDOMEN: Soft, nontender, nondistended. NEUROLOGIC: Cranial nerves 2-12 are grossly intact. No focal neuro deficits. 5/5 strength in the bilateral upper and lower extremities. MUSCULOSKELETAL: No clubbing, cyanosis or edema. <ELECTRONICALLY SIGNED> By: Cindi Fairchild DO 01/04/18 1521 [id number] Fairchild DO /nt
== END 2017-12-10 12:53 | disposition home or self-care (01) | DRG 310 ==
LOC: M.REH 12:32
PROVIDERS: Family Medicine; Internal Medicine; Nurse Practitioner Family; ADMIT Physical Medicine & Rehabilitation
DX: I49.5 Sick sinus syndrome (principal); I48.0 Paroxysmal atrial fibrillation; N40.0 Benign prostatic hyperplasia without lower urinary tract symptoms; I25.10 Atherosclerotic heart disease of native coronary artery without angina pectoris; E11.9 Type 2 diabetes mellitus without complications; K21.9 Gastro-esophageal reflux disease without esophagitis; I10 Essential (primary) hypertension; M17.0 Bilateral primary osteoarthritis of knee; M16.0 Bilateral primary osteoarthritis of hip; R53.81 Other malaise; E78.5 Hyperlipidemia, unspecified; Z96.653 Presence of artificial knee joint, bilateral; Z96.612 Presence of left artificial shoulder joint; M54.5 Low back pain; G89.29 Other chronic pain; Z95.0 Presence of cardiac pacemaker; Z95.1 Presence of aortocoronary bypass graft; Z86.73 Personal history of transient ischemic attack (TIA), and cerebral infarction without residual deficits; Z87.81 Personal history of (healed) traumatic fracture; Z88.8 Allergy status to other drugs, medicaments and biological substances; Z88.2 Allergy status to sulfonamides; Z91.013 Allergy to seafood; Z79.4 Long term (current) use of insulin; Z89.512 Acquired absence of left leg below knee; Z90.49 Acquired absence of other specified parts of digestive tract; Z79.01 Long term (current) use of anticoagulants; Z79.899 Other long term (current) drug therapy; Z79.82 Long term (current) use of aspirin; Z82.49 Family history of ischemic heart disease and other diseases of the circulatory system

== ENCOUNTER → 2017-12-23 | Outpatient (CLI) | payer MEDICARE, OTHER ==
[~2017-12-23] MED LIST changes: +ASPIR 8181 MG PO; +CARDIZEM CD120 MG PO; +CARDIZEM CD180 MG PO; +COUMADIN 2.5MG2.5 M1 PO; +COUMADIN 5 MG TA5 M1 PO; +DETROL LA4 MG PO; +FISH OIL 1,001000 M2 PO; +HUMALOG100 UNIT/1 SUBQ; +IRON325 PO; +LANTUS100 UNIT/M SUBQ; +TOPROL XL100 MG PO; +TOVIAZ8 MG PO
== END ==
LOC: M.WC 05:02
DX: E11.622 Type 2 diabetes mellitus with other skin ulcer (principal); L98.491 Non-pressure chronic ulcer of skin of other sites limited to breakdown of skin; I87.2 Venous insufficiency (chronic) (peripheral); I10 Essential (primary) hypertension; E78.5 Hyperlipidemia, unspecified; Z86.73 Personal history of transient ischemic attack (TIA), and cerebral infarction without residual deficits; Z68.36 Body mass index [BMI] 36.0-36.9, adult; Z96.653 Presence of artificial knee joint, bilateral; Z95.1 Presence of aortocoronary bypass graft; Z96.612 Presence of left artificial shoulder joint

== ENCOUNTER → 2017-12-28 | Outpatient (CLI) | payer MEDICARE, OTHER | LOC: M.WC 02:12 | DX: E11.622 Type 2 diabetes mellitus with other skin ulcer (principal); L98.491 Non-pressure chronic ulcer of skin of other sites limited to breakdown of skin; I87.2 Venous insufficiency (chronic) (peripheral); I10 Essential (primary) hypertension; E78.5 Hyperlipidemia, unspecified; Z68.36 Body mass index [BMI] 36.0-36.9, adult; Z86.73 Personal history of transient ischemic attack (TIA), and cerebral infarction without residual deficits; Z89.612 Acquired absence of left leg above knee ==

== ENCOUNTER → 2018-01-04 | Outpatient (CLI) | payer MEDICARE, OTHER | LOC: M.WC 00:51 | DX: E11.622 Type 2 diabetes mellitus with other skin ulcer (principal); L98.491 Non-pressure chronic ulcer of skin of other sites limited to breakdown of skin; I87.2 Venous insufficiency (chronic) (peripheral); I10 Essential (primary) hypertension; E78.5 Hyperlipidemia, unspecified; Z86.73 Personal history of transient ischemic attack (TIA), and cerebral infarction without residual deficits; Z89.612 Acquired absence of left leg above knee ==

== ENCOUNTER → 2018-02-15 | Outpatient (CLI) | payer MEDICARE, OTHER | LOC: M.LAB 02-10 15:59 → M.CT 10:55 | DX: I70.0 Atherosclerosis of aorta (principal); G89.29 Other chronic pain; M54.41 Lumbago with sciatica, right side; R93.5 Abnormal findings on diagnostic imaging of other abdominal regions, including retroperitoneum; I10 Essential (primary) hypertension; I25.10 Atherosclerotic heart disease of native coronary artery without angina pectoris; E11.9 Type 2 diabetes mellitus without complications; E78.2 Mixed hyperlipidemia; E66.01 Morbid (severe) obesity due to excess calories; E03.9 Hypothyroidism, unspecified ==